=== PATIENT | male | born 1955 | race Caucasian/White ===

== ENCOUNTER 2019-09-21 11:32 | Day surgery (SDC) | payer MEDICARE ==
[2019-09-19 15:43] VITALS: BMI 25.7
[~2019-09-21 11:32] MED LIST: LACTATED RINGERS 1,000 ML IV SCH
[2019-09-21] MEDS ORDERED: LIDOCAINE 1% 20 ML VIAL (10MG/ML) FOR IV START INTRADERMA ONE (11:46)
[2019-09-21 11:47] VITALS: RESP 16; TEMP 97.5
[2019-09-21] MEDS ORDERED: PROPOFOL 10 MG/ML 20 ML VIAL IV ONE (12:10)
--- NOTE | 2019-09-21 12:57 | P.PCN ---
Date of Procedure: 09/21/19 Description of Procedure: BRIEF HISTORY: Patient is a 64-year-old pleasant male scheduled for an elective colonoscopy as a part of follow-up after positive testing with Cologard. Patient denies any change in bowel habits, blood per rectum or abdominal pain. Last colonoscopy at the age of 49. PROCEDURE PERFORMED: Colonoscopy with polypectomy. PREOPERATIVE DIAGNOSIS: Positive Cologard. ESTIMATED BLOOD LOSS: Minimal. IV sedation per Anesthesia. PROCEDURE: After informed consent was obtained, the patient, was brought into the endoscopy unit. IV sedation was administered by Anesthesia under continuous monitoring. Digital rectal examination was normal. Initially the Olympus CF-190 flexible video colonoscope was then inserted in the rectum, gradually advanced into the cecum without any difficulty. Careful examination was performed as the scope was gradually being withdrawn. Ileocecal valve and the appendiceal orifice were visualized and appeared normal. Prep was excellent. Mucosa of the cecum, ascending colon, transverse colon, descending colon, sigmoid colon, and rectum appeared normal. Small 4 mm ascending colon polyp removed with cold snare polypectomy. Diminutive 2 mm transverse colon polyp removed with cold forcep polypectomy. Moderate left-sided colonic diverticulosis. Retroflexion was performed in the rectum and no lesions were seen, low-grade internal hemorrhoids. The patient tolerated the procedure well. IMPRESSION: Small ascending colon polyp removed with cold snare polypectomy. Diminutive transverse colon polyp removed with cold forcep polypectomy. Moderate left-sided colonic diverticulosis. RECOMMENDATIONS: Findings of this examination were discussed with the patient and his . Okay to resume diet. Adequate to resume medications. Would recommend repeat colonoscopy in 5 years for personal history of colon polyps.
[2019-09-21 13:20] VITALS: BP 111/74; PULSE 60
== END 2019-09-21 13:25 | disposition home or self-care (01) ==
LOC: ORWHC2ENDO 11:32
PROVIDERS: ATTEND Internal Medicine
DX: K63.5 Polyp of colon (principal); K57.30 Diverticulosis of large intestine without perforation or abscess without bleeding; K64.8 Other hemorrhoids; E78.5 Hyperlipidemia, unspecified; Z79.899 Other long term (current) drug therapy; Z87.891 Personal history of nicotine dependence; Z88.0 Allergy status to penicillin
CPT/HCPCS: 45385; 88305; 45380; J2704

== ENCOUNTER 2022-02-04 05:41 | Emergency (ER) | payer MEDICARE ==
[2022-02-04 05:50] LABS: Glucose,Whole Blood 162 mg/dL (75-99)
[2022-02-04] MEDS ORDERED: SODIUM CHLORIDE 0.9% 1,000 ML IV STA (06:00)
[2022-02-04] MEDS ORDERED: MECLIZINE 12.5 MG TAB PO STA (06:22)
--- NOTE | 2022-02-04 06:33 | ED ---
Dizziness HPI - General Chief Complaint: Dizziness Stated Complaint: Dizziness Time Seen by Provider: 02/04/22 05:59 Source: patient, RN notes reviewed Mode of arrival: wheelchair Limitations: no limitations - History of Present Illness Initial Comments: This is a 66-year-old male presents emergency Department chief complaint of dizziness, near syncope. Patient states that he Was walking to the bathroom states started walking and got lightheaded, dizzy. He states that the toilet symptoms resolved. Patient states he Went back to the bathroom states he was moving quickly became dizzy again. States is on is not moving has no symptoms. Patient denies history of vertigo denies headache, blurred vision or focal weakness denies any nausea vomiting. Patient does have a history of diabetes. Patient states that he recently took himself off metformin to see if his blood sugar was normalized. He states that it has been averaging around 100 fasting. Patient denies any recent trauma no ear pain no nasal congestion no cough or like symptoms. - Related Data Home Medications Medication Instructions Recorded Confirmed Atorvastatin [Lipitor] 10 mg PO DAILY 09/19/19 09/21/19 Sildenafil Citrate [Viagra] 20 mg PO ONCE PRN 09/19/19 09/21/19 Previous Rx's Medication Instructions Recorded Meclizine [Antivert] 25 mg PO TID PRN #15 tab 02/04/22 Allergies Allergy/AdvReac Type Severity Reaction Status Date / Time No Known Allergies Allergy Verified 02/04/22 05:47 Review of Systems ROS Statement: Those systems with pertinent positive or pertinent negative responses have been documented in the HPI. ROS Other: All systems not noted in ROS Statement are negative. Past Medical History Past Medical History: Diabetes Mellitus, Hyperlipidemia History of Any Multi-Drug Resistant Organisms: None Reported Additional Past Surgical History / Comment(s): colonoscopy Past Anesthesia/Blood Transfusion Reactions: No Reported Reaction Past Psychological History: No Psychological Hx Reported Smoking Status: Former smoker Past Alcohol Use History: Rare Past Drug Use History: None Reported - Past Family History Mother Family Medical History: No Reported History General Exam Limitations: no limitations General appearance: alert, in no apparent distress Head exam: Present: atraumatic, normocephalic, normal inspection Eye exam: Present: normal appearance, PERRL, EOMI. Absent: scleral icterus, conjunctival injection, periorbital swelling ENT exam: Present: normal exam, normal oropharynx, mucous membranes moist Neck exam: Present: normal inspection, full ROM. Absent: tenderness, meningismus, lymphadenopathy Respiratory exam: Present: normal lung sounds bilaterally. Absent: respiratory distress, wheezes, rales, rhonchi, stridor Cardiovascular Exam: Present: regular rate, normal rhythm, normal heart sounds. Absent: systolic murmur, diastolic murmur, rubs, gallop, clicks Neurological exam: Present: alert, oriented X3, CN II-XII intact, reflexes normal. Absent: motor sensory deficit Skin exam: Present: warm, dry, intact, normal color. Absent: rash Course Vital Signs 02/04/22 02/04/22 02/04/22 05:42 06:03 06:43 Temperature 97.5 F L Pulse Rate 70 69 Respiratory 18 16 Rate Blood Pressure 144/95 161/107 Blood Pressure 140/87 [Right Arm Sitting] Blood Pressure 127/85 [Right Arm Standing] Blood Pressure 140/88 [Right Arm Supine] O2 Sat by Pulse 98 97 Oximetry EKG Findings - EKG Comments: EKG Findings:: EKG performed at 5.52 sinus rhythm with noted first-degree block rate of 66 MA 218 QRS 89 QT/QTC 394/407 Medical Decision Making - Medical Decision Making 66-year-old presented for vertigo, near syncope patient's workup reveals no acute findings. Patient was given fluids, Antivert all symptoms have resolved he has no neuro deficits or neurological symptoms currently. Patient will be discharged in stable condition return parameters were discussed. - Lab Data Result diagrams: 02/04/22 06:05 02/04/22 06:05 Lab Results 02/04/22 02/04/22 02/04/22 Range/Units 05:49 06:05 06:05 WBC 6.0 (3.8-10.6) k/uL RBC 5.17 (4.30-5.90) m/uL Hgb 15.9 (13.0-17.5) gm/dL Hct 48.4 (39.0-53.0) % MCV 93.5 (80.0-100.0) fL MCH 30.7 (25.0-35.0) pg MCHC 32.8 (31.0-37.0) g/dL RDW 13.0 (11.5-15.5) % Plt Count 200 (150-450) k/uL MPV 9.3 Neutrophils % 58 % Lymphocytes % 16 % Monocytes % 6 % Eosinophils % 18 % Basophils % 1 % Neutrophils # 3.5 (1.3-7.7) k/uL Lymphocytes # 0.9 L (1.0-4.8) k/uL Monocytes # 0.4 (0-1.0) k/uL Eosinophils # 1.1 H (0-0.7) k/uL Basophils # 0.1 (0-0.2) k/uL Sodium 136 L (137-145) mmol/L Potassium 4.6 (3.5-5.1) mmol/L Chloride 102 (98-107) mmol/L Carbon Dioxide 24 (22-30) mmol/L Anion Gap 10 mmol/L BUN 21 H (9-20) mg/dL Creatinine 0.93 (0.66-1.25) mg/dL Est GFR (CKD-EPI)AfAm >90 (>60 ml/min/1.73 sqM) Est GFR (CKD-EPI)NonAf 85 (>60 ml/min/1.73 sqM) Glucose 168 H (74-99) mg/dL POC Glucose (mg/dL) 162 H (75-99) mg/dL POC Glu Scarfer ID Fahad Dario Calcium 9.3 (8.4-10.2) mg/dL Magnesium 1.9 (1.6-2.3) mg/dL Total Bilirubin 0.9 (0.2-1.3) mg/dL AST 22 (17-59) U/L ALT 12 (4-49) U/L Alkaline Phosphatase 75 (38-126) U/L Troponin I (0.000-0.034) ng/mL Total Protein 8.1 (6.3-8.2) g/dL Albumin 4.7 (3.5-5.0) g/dL Urine Color Urine Appearance (Clear) Urine pH (5.0-8.0) Ur Specific Heaters (1.001-1.035) Urine Protein (Negative) Urine Glucose (UA) (Negative) Urine Ketones (Negative) Urine Blood (Negative) Urine Nitrite (Negative) Urine Bilirubin (Negative) Urine Urobilinogen (<2.0) mg/dL Ur Leukocyte Esterase (Negative) 02/04/22 02/04/22 Range/Units 06:05 06:57 WBC (3.8-10.6) k/uL RBC (4.30-5.90) m/uL Hgb (13.0-17.5) gm/dL Hct (39.0-53.0) % MCV (80.0-100.0) fL MCH (25.0-35.0) pg MCHC (31.0-37.0) g/dL RDW (11.5-15.5) % Plt Count (150-450) k/uL MPV Neutrophils % % Lymphocytes % % Monocytes % % Eosinophils % % Basophils % % Neutrophils # (1.3-7.7) k/uL Lymphocytes # (1.0-4.8) k/uL Monocytes # (0-1.0) k/uL Eosinophils # (0-0.7) k/uL Basophils # (0-0.2) k/uL Sodium (137-145) mmol/L Potassium (3.5-5.1) mmol/L Chloride (98-107) mmol/L Carbon Dioxide (22-30) mmol/L Anion Gap mmol/L BUN (9-20) mg/dL Creatinine (0.66-1.25) mg/dL Est GFR (CKD-EPI)AfAm (>60 ml/min/1.73 sqM) Est GFR (CKD-EPI)NonAf (>60 ml/min/1.73 sqM) Glucose (74-99) mg/dL POC Glucose (mg/dL) (75-99) mg/dL POC Glu Scarfer ID Calcium (8.4-10.2) mg/dL Magnesium (1.6-2.3) mg/dL Total Bilirubin (0.2-1.3) mg/dL AST (17-59) U/L ALT (4-49) U/L Alkaline Phosphatase (38-126) U/L Troponin I <0.012 (0.000-0.034) ng/mL Total Protein (6.3-8.2) g/dL Albumin (3.5-5.0) g/dL Urine Color Yellow Urine Appearance Clear (Clear) Urine pH 5.0 (5.0-8.0) Ur Specific Heaters 1.020 (1.001-1.035) Urine Protein Negative (Negative) Urine Glucose (UA) 2+ H (Negative) Urine Ketones Negative (Negative) Urine Blood Negative (Negative) Urine Nitrite Negative (Negative) Urine Bilirubin Negative (Negative) Urine Urobilinogen <2.0 (<2.0) mg/dL Ur Leukocyte Esterase Negative (Negative) Disposition Clinical Impression: Vertigo Disposition: HOME SELF-CARE Condition: Stable Instructions (If sedation given, give patient instructions): Dizziness (ED) Additional Instructions: Please return to the Emergency Department if symptoms worsen or any other concerns. Prescriptions: Meclizine [Antivert] 25 mg PO TID PRN #15 tab PRN Reason: Vertigo Is patient prescribed a controlled substance at d/c from ED?: No Referrals: Ernst Sepulveda DO [Primary Care Provider] - 1-2 days Time of Disposition: 08:35
[2022-02-04] MEDS ORDERED: SODIUM CHLORIDE 0.9% 1,000 ML IV ONE (06:49)
--- NOTE | 2022-02-04 06:51 | XR ---
EXAMINATION TYPE: XR chest 2V DATE OF EXAM: 02/04/2022 COMPARISON: NONE HISTORY: Syncope and dizziness. TECHNIQUE: Frontal and lateral views of the chest are obtained. FINDINGS: There is chronic parenchymal change without suspicious focal air space opacity, pleural ef fusion, or pneumothorax seen. The cardiac silhouette size is within normal limits. Surgical change l eft clavicle is present. Underlying scoliosis is seen. IMPRESSION: Chronic changes without acute process.
[2022-02-04 07:03] LABS: Basophils # (A) 0.1 k/uL (0-0.2); Basophils % (A) 1 %; Eosinophils # (A) 1.1 k/uL (0-0.7); Eosinophils % (A) 18 %; HCT 48.4 % (39.0-53.0); HGB 15.9 gm/dL (13.0-17.5); Lymphocytes # (A) 0.9 k/uL (1.0-4.8); Lymphocytes % (A) 16 %; MCH 30.7 pg (25.0-35.0); MCHC 32.8 g/dL (31.0-37.0); MCV 93.5 fL (80.0-100.0); Mean Platelet Volume 9.3; Monocytes # (A) 0.4 k/uL (0-1.0); Monocytes % (A) 6 %; Neutrophils # (A) 3.5 k/uL (1.3-7.7); Neutrophils % (A) 58 %; Platelet Count 200 k/uL (150-450); RBC 5.17 m/uL (4.30-5.90)
[2022-02-04 07:04] LABS: Appearance,Urine Clear (Clear); Bilirubin,Urine Negative (Negative); Blood,Urine Negative (Negative); Color,Urine Yellow; Glucose,Urine (UA) 2+ (Negative); Ketones,Urine Negative (Negative); Leukocyte Esterase,Urine Negative (Negative); Nitrite,Urine Negative (Negative); Protein,Urine Negative (Negative); Urobilinogen,Urine <2.0 mg/dL (<2.0)
[2022-02-04 07:12] LABS: ALT 12 U/L (4-49); AST 22 U/L (17-59); African American GFR (CKD) >90 (>60 ml/min/1.73 sqM); Albumin 4.7 g/dL (3.5-5.0); Alkaline Phosphatase 75 U/L (38-126); Anion Gap 10 mmol/L; Blood Urea Nitrogen 21 mg/dL (9-20); Calcium 9.3 mg/dL (8.4-10.2); Carbon Dioxide 24 mmol/L (22-30); Chloride 102 mmol/L (98-107); Glucose 168 mg/dL (74-99); Magnesium 1.9 mg/dL (1.6-2.3); Non-African American GFR(CKD) 85 (>60 ml/min/1.73 sqM); Potassium 4.6 mmol/L (3.5-5.1); Sodium 136 mmol/L (137-145); Total Bilirubin 0.9 mg/dL (0.2-1.3); Total Protein 8.1 g/dL (6.3-8.2)
[2022-02-04 08:41] VITALS: BP 121/90; PULSE 66; RESP 18; TEMP 96.9
== END 2022-02-04 08:46 | disposition home or self-care (01) ==
LOC: EC 05:41
DX: R42 Dizziness and giddiness (principal); E11.9 Type 2 diabetes mellitus without complications; E78.5 Hyperlipidemia, unspecified; Z87.891 Personal history of nicotine dependence
CPT/HCPCS: 36415; 71046; 80053; 81003; 83735; 84484; 85025; 93005; 96360; 99284

== ENCOUNTER → 2023-05-06 | Outpatient (CLI) | payer MEDICARE ==
--- NOTE | 2023-05-06 11:36 | CA ---
Exercise Stress Test Report Name: Rodolfo Ruiz Exam Date: 05/06/2023 09:12 Exam Location: [facility] Stress Ht (in): 74 Wt (lb): 185 BSA: 2.10 Ordering Phys: Ernst Sepulveda DO Referring Phys: robles rodolfo,, Technologist: Kike Post Age: 67 Gender: M : 1955 Procedure CPT: Indications: R07.89 chest pain ICD-10 Codes: Patient History: CHEST PAIN, DIABETIC, ELEVATED CHOLESTEROL LEVELS, PRIOR SMOKER - QUIT 8 YEARS (0.5 PPD X 35 YEARS) Medications: EZETIMIBE, ROSUVASTATIN, TADALAFIL Meds past 24 hrs: Pretest Chest Pain: STRESS TEST [facility]uan Protocol Exercise Duration (min:sec): 09:[address] Depressions (mm): Angina Score: Sanford Score: Resting HR (bpm): 68 Peak HR (bpm): 134 Resting BP (mmHg): 121 / 79 Peak BP (mmHg): 181 / 77 MPHR: 152 Target HR: 129 % MPHR: 88 METS: 10.3 Total Dose: Peak Dose: Atropine: Double Product: 76254 BP Response: Stress Termination: MAX EXERTION/TARGET HR Stress Symptoms: NO SYMPTOMS Stress Summary: ECG ANALYSIS Resting ECG: Stress ECG: CONCLUSIONS Baseline EKG revealed a normal sinus rhythm without significant ST-T changes. Patient walked on a standard Huan protocol for a total duration of 9 minutes. His resting heart rate was 68 bpm. Peak heart rate was 134 bpm which is 88% of predicted maximal. He did not have any angina. There was no arrhythmia. There were no ST segment changes to indicate ischemia. This is a negative stress test with fair exercise capacity without evidence of ischemia Dr. Dayna Rodas MD (Electronically Signed) Final Date: 06 May 2023 11:35
== END | disposition home or self-care (01) ==
LOC: RADNMMAIN 08:10
PROVIDERS: ATTEND Family Medicine
DX: R07.89 Other chest pain (principal)
CPT/HCPCS: 93017

== ENCOUNTER → 2023-11-26 | Outpatient (CLI) | payer MEDICARE ==
--- NOTE | 2023-11-26 11:16 | XR ---
EXAMINATION TYPE: XR knee complete LT DATE OF EXAM: 11/26/2023 COMPARISON: NONE HISTORY: Pain TECHNIQUE: Three views are submitted. FINDINGS: Mild narrowing of the medial compartment patellofemoral compartment the joint spaces with m arginal spurring. These affect along the upper margin patella. There are soft tissue ossifications po sterior to the knee joint which may relate to accessory ossicle or sesamoid bone. Osseous structures are intact. No acute fracture seen. IMPRESSION: 1. No acute fracture or dislocation. Mild osteoarthritis. 2. Small suprapatellar l bursal fluid collection can be associated with internal derangement of the k nee. Recommend follow-up MRI.
== END | disposition home or self-care (01) ==
LOC: RADXRMAIN 10:25
PROVIDERS: ATTEND Family Medicine
DX: M17.12 Unilateral primary osteoarthritis, left knee (principal); M70.52 Other bursitis of knee, left knee

== ENCOUNTER → 2024-09-12 | Day surgery (SDC) | payer MEDICARE ==
[2024-09-08 12:43] VITALS: BMI 24.4
[~2024-09-12] MED LIST changes: -LACTATED RINGERS 1,000 ML IV SCH; +LIDOCAINE 1% (10MG/ML) FOR IV START INTRADERMA PRN; +ONDANSETRON 4 MG/2 ML VIAL IVP PRN; +PROPOFOL 10 MG/ML 20 ML VIAL IV ONE
[2024-09-12] MEDS: IV FLUID CONTINUATION 1,000 ML IV ONE (09:35)
[2024-09-12 09:42] VITALS: RESP 14; TEMP 97.6
[2024-09-12 09:47] LABS: Glucose,Whole Blood 85 mg/dL (70-110)
[2024-09-12] MEDS: LACTATED RINGERS 1,000 ML IV SCH (09:47)
--- NOTE | 2024-09-12 10:38 | P.PCN ---
Date of Procedure: 09/12/24 Procedure(s) Performed: BRIEF HISTORY: Patient is a 69-year-old pleasant white male scheduled for an elective colonoscopy as a part of evaluation by history of colon polyps. Last colonoscopy was 5 years ago and was noted to have a tubular adenoma. PROCEDURE PERFORMED: Colonoscopy. PREOPERATIVE DIAGNOSIS: History of colon polyps. IV sedation per Anesthesia. PROCEDURE: After informed consent was obtained, the patient, was brought into the endoscopy unit. IV sedation was administered by Anesthesia under continuous monitoring. Digital rectal examination was normal. Initially the Olympus CF-160 flexible video colonoscope was then inserted in the rectum, gradually advanced into the cecum without any difficulty. Careful examination was performed as the scope was gradually being withdrawn. Ileocecal valve and the appendiceal orifice were visualized and appeared normal. Prep was excellent. Mucosa of the cecum, ascending colon, transverse colon, descending colon, sigmoid colon, and rectum appeared normal. Scattered sigmoid diverticulosis retroflexion was performed in the rectum and grade 2 internal hemorrhoids were seen. The patient tolerated the procedure well. IMPRESSION: Normal-appearing colon from rectum to cecum as of colorectal. Scattered sigmoid diverticulosis Small internal hemorrhoids RECOMMENDATIONS: Findings of this examination were discussed with the patient as well as his family. He was advised to have repeat colonoscopy in 10 years..
[2024-09-12 11:13] VITALS: BP 137/82; PULSE 59
== END ==
LOC: ORWHC2ENDO 09:12
PROVIDERS: ATTEND Internal Medicine Gastroenterology
DX: K57.30 Diverticulosis of large intestine without perforation or abscess without bleeding (principal); K64.1 Second degree hemorrhoids; E78.5 Hyperlipidemia, unspecified; E11.9 Type 2 diabetes mellitus without complications; F12.90 Cannabis use, unspecified, uncomplicated; Z87.891 Personal history of nicotine dependence; Z86.0101 Personal history of adenomatous and serrated colon polyps; Z79.899 Other long term (current) drug therapy
CPT/HCPCS: 45378; J2704